=== PATIENT | female | born 1950 | race Caucasian/White ===

== ENCOUNTER → 2020-10-03 11:19 | Outpatient (BNVA) | payer MEDICARE, OTHER, SELFPAY | PROVIDERS: PCP Student in an Organized Health Care Education/Training Program; Referring Provider Student in an Organized Health Care Education/Training Program; Visit Provider Specialist | DX: R51.9 Headache, unspecified (principal); R20.0 Anesthesia of skin; R20.2 Paresthesia of skin; M54.2 Cervicalgia; M47.812 Spondylosis without myelopathy or radiculopathy, cervical region | CPT/HCPCS: 36415; 72040; 82607; 85651; 86140; 99204 ==

== ENCOUNTER 2020-10-03 12:50 | Outpatient (CLI) | payer MEDICARE, OTHER, SELFPAY ==
--- NOTE | 2020-10-03 13:06 | XR_ITS ---
WS: [id number] LATERAL CERVICAL SPINE: 3 view. Lateral radiographs are performed in upright neutral, flexion and extension to the patient's toleranc e. HISTORY: M54.2 - Cervicalgia COMPARISON: None available. Straightening of the normal cervical lordosis. Mild disc space narrowing at C4-5, C5-6 and C6-7. Ther e are small hypertrophic osteophytes from C4 to C7. No fracture. With flexion and extension no instab ility is demonstrated. XR/XR cervical spine fl/ex [id number] IMPRESSION: 1. Mild straightening of the normal cervical lordosis. 2. Mild spondylitic changes with no instability.
[2020-10-03 14:22] LABS: C Reactive Protein 1.1 mg/L (0.0-4.9); Vitamin B12 362 pg/mL (232-1245)
[2020-10-03 14:50] LABS: Erythrocyte Sedimentation Rate 10 mm/hr (0-15)
== END 2020-10-03 12:51 | disposition home or self-care (01) ==
PROVIDERS: PCP Student in an Organized Health Care Education/Training Program; Visit Provider Specialist
DX: M54.2 Cervicalgia (principal); R51.9 Headache, unspecified; R20.0 Anesthesia of skin; R20.2 Paresthesia of skin
CPT/HCPCS: 36415; 72040; 82607; 85651; 86140